=== PATIENT | female | born 1970 | race Two or more races ===

== ENCOUNTER 2017-05-01 15:34 | Inpatient (IN) | payer OTHER ==
[~2017-05-01] VITALS: Ht 152.4 cm; Wt 85.0 kg
[2017-05-01 17:35] VITALS: BP 142/96; PULSE 90; RESP 18
[2017-05-01 17:46] VITALS: PULSE 92
[2017-05-01] MEDS ORDERED: HYDROCODONE/APAP (10/325) TAB PO PRN (19:30)
[2017-05-01] MEDS: HYDROCODONE/APAP (10/325) TAB PO PRN (19:46)
[2017-05-01] MEDS ORDERED: LORA-444 PO (19:49)
[2017-05-01] MEDS ORDERED: CARI350T29 PO (19:50)
[2017-05-01 19:51] LABS: ALBUMIN 4.3 g/dl (3.3-4.9); ALBUMIN/GLOBULIN RATIO 1.19; BILIRUBIN,INDIRECT 0.1 mg/dl (0-1.1); BILIRUBIN,TOTAL 0.1 mg/dl (0.2-1.3); CALCIUM 9.4 mg/dl (8.4-10.2); CREATININE 0.58 mg/dl (0.44-1.00); POTASSIUM 3.7 mmol/L (3.5-5.1); TOTAL PROTEIN 7.9 g/dl (6.1-8.1)
[2017-05-01 20:00] VITALS: BP 165/90; RESP 20; Ht 152.4 cm; Wt 85.0 kg
[2017-05-01] MEDS ORDERED: LORAZEPAM 2 MG INJ IV ONE (20:00)
[2017-05-01 20:11] VITALS: PULSE 95
[2017-05-01] MEDS: morphine 2 MG INJ IV PRN ×2 (20:18→23:45)
--- NOTE | 2017-05-01 22:33 | HP ---
Date/Time of Note Date/Time of Note DATE: 05/01/17 TIME: 22:31 Assessment/Plan VTE Prophylaxis VTE Prophylaxis Intervention: SCD's Lines/Catheters IV [facility] Saline Lock Urinary Cath still in place: No Assessment/Plan Assessment/Plan 47-year-old female who presents with nonspecific left-sided weakness, left facial numbness, and heavy tongue causing difficulty swallowing managed as follows: 1. L sided weakness and numbness r/o acute CVA 2. DM type 2 3. HTN 4. Anxiety d/o which may be contributing to #1 5. Prev "Mini strokes" in the past PLAN: Admit tele / MRI Brain / 2D echo PT / ST eval / Neurology consult Screening labs for dyslipidemia, DM, Thyroid disease Empiric ASA / Statin therapy Further evaluation and treatment will be based on clinical course and findings PROPHYLAXIS: Lovenox / Pepcid Plan of care has been discussed with patient, questions answered and patient has verbalized understanding. Please review chart and notes for further information if needed. HPI/ROS Admit Date/Time Admit Date/Time May 01, 2017 at 17:36 Hx of Present Illness 47 yo F sent from [place] where she had presented withL arm numbness and slurred speech and a heavy tongue. States she has had mini strokes in the past, with residual LLE mild weakness. At this time reports being significantly weaker on L arm. Also has failed bedside swallow eval. Code stroke was called but TPA was not recommended, Patient also has anxiety issues. being admitted for stroke workup. Brain CT showed no prev strokes or acute abn. MRI ordered and pending. ROS 12 point review if systems was done and pertinent findings are as noted. ENT: dysphagia PMH/Family/Social Past Medical History * HTN * DM * [place] * Obesity * anxiety d/o Past Surgical History * appendicitis * tubal ligation * hysterectomy * shoulder replacement * left clavicle surgery. Family History Significant Family History: hypertension Social History Alcohol Use: none Smoking Status: Never smoker Drug Use: none Exam/Review of Systems Vital Signs Vitals VS - Last 72 Hours, by Label Date Time Temp Pulse Resp B/P Pulse Ox O2 Delivery O2 Flow Rate FiO2 05/01/17 20:00 99.6 98 20 165/90 97 05/01/17 17:46 92 05/01/17 17:35 99.9 90 18 142/96 94 Room Air Vital Signs Date Time Temp Pulse Resp B/P Pulse Ox O2 Delivery O2 Flow Rate FiO2 05/01/17 20:00 99.6 98 20 165/90 97 05/01/17 17:35 Room Air Exam Constitutional: alert, other (obese) Psych: anxiety Head: atraumatic, normocephalic Eyes: PERRL ENMT: mucosa pink and moist Neck: non-tender, supple Respiratory: clear to auscultation Cardiovascular: regular rate and rhythm, No murmurs/extra sounds Gastrointestinal: bowel sounds, non-tender, other (obese), soft Extremities: No edema Neurological: focal weakness (patient seems weaker on the LLE and LUE, she can barely raise LLE against gravity and has a significant drift in LUE and L facial numbness), lethargic, No confused, No nl strength Skin: No rash or lesions Labs Result Diagram: 05/01/171916 Medications Medications Current Medications Acetaminophen/ Hydrocodone Bitart ([place] (10/325)) 1 tab Q4H PRN PO PAIN Last administered on 05/01/17 19:46; Admin Dose 1 TAB; Start 05/01/17 at 19:30 Morphine Sulfate (morphine) 2 mg Q4H PRN IV PAIN Last administered on 20:18; Admin Dose 2 MG; Start 05/01/17 at 20:00 Procedures Procedures Labs reviewed and summarized in HPI. HAYLIE REBOLLEDO May 01, 2017 22:33
[2017-05-02] VITALS (13 sets, daily range): BP systolic 113–143; BP diastolic 58–107; PULSE 75–97; RESP 15–18
[2017-05-02] MEDS ORDERED: DIVA250T12 PO (01:56)
[2017-05-02] MEDS ORDERED: DIVA-16 PO (01:56)
[2017-05-02] MEDS ORDERED: DIVA500T15 PO (01:56)
[2017-05-02] MEDS ORDERED: GABA300C16 PO (01:59)
[2017-05-02] MEDS ORDERED: OXCA600T30 PO (02:03)
[2017-05-02] MEDS ORDERED: ASPI-664 PO (02:03)
[2017-05-02] MEDS ORDERED: HYDR-906 PO (02:05)
[2017-05-02] MEDS ORDERED: DEXTROSE 5%-0.45% NACL 1,000 ML IV SCH (02:30)
[2017-05-02] MEDS: morphine 2 MG INJ IV PRN ×4 (03:39→23:26)
[2017-05-02] MEDS: LORAZEPAM 1 MG TAB PO PRN ×2 (03:49→12:41)
[2017-05-02 08:48] LABS: BASOPHILS % 0.4 % (0.0-2.0); EOSINOPHILS % 0.5 % (0.0-7.0); HEMATOCRIT 37.4 % (37.0-47.0); HEMOGLOBIN 12.4 g/dl (12.0-16.0); LYMPHOCYTES # 1.3 10^3/ul (0.8-2.9); LYMPHOCYTES % 16.3 % (15.0-51.0); MEAN CORPUSCULAR HGB CONC 33.2 g/dl (32.0-37.0); MEAN CORPUSCULAR VOLUME 90.6 fl (82.0-101.0); MEAN PLATELET VOLUME 11.7 fl (7.4-10.4); MONOCYTE # 0.8 10^3/ul (0.3-0.9); MONOCYTES % 9.8 % (0.0-11.0); NEUTROPHILS % 72.7 % (39.0-77.0); PLATELET COUNT 302 10^3/UL (140-415); RED BLOOD COUNT 4.13 10^6/ul (4.20-5.40); WHITE BLOOD COUNT 7.7 10^3/ul (4.8-10.8)
[2017-05-02 09:15] LABS: ALBUMIN 4.3 g/dl (3.3-4.9); BILIRUBIN,INDIRECT 0.2 mg/dl (0-1.1); BILIRUBIN,TOTAL 0.2 mg/dl (0.2-1.3); CHOL/HDL RATIO 5.1 RATIO; CREATININE 0.72 mg/dl (0.44-1.00); MAGNESIUM 2.2 mg/dl (1.7-2.5); POTASSIUM 3.5 mmol/L (3.5-5.1); TOTAL PROTEIN 7.4 g/dl (6.1-8.1)
[2017-05-02] MEDS: HYDROCODONE/APAP (10/325) TAB PO PRN ×4 (09:17→20:38)
[2017-05-02] MEDS: SOD CHLORIDE 0.9% 1,000 ML IV SCH ×2 (10:20→22:50)
[2017-05-02 10:40] LABS: THYROID STIMULATING HORMONE 1.93 MIU/L (0.465-4.680)
[2017-05-02] MEDS: ASPIRIN 300 MG SUPP PR SCH (11:00)
--- NOTE | 2017-05-02 14:29 | PN ---
Date/Time of Note Date/Time of Note DATE: 05/02/17 TIME: 14:17 Assessment/Plan VTE Prophylaxis VTE Prophylaxis Intervention: LMWH Lines/Catheters IV Catheter Type (from Nrs): Peripheral IV Urinary Cath still in place: No Assessment/Plan Assessment/Plan 1. Left sided weakness and numbness and cold feeling, r/o acute CVA, awaiting for MRI, echo/carotid US 2. Dyslipidemia, on statin 3. Anxiety disorder 4. Obesity 5. Chronic back pain, norco prn 6. DVT prophylaxis: lovenox Subjective 24 Hr Interval Summary Free Text/Dictation still with left sided weakness and numbness Exam/Review of Systems Vital Signs Vitals Vital Signs Date Time Temp Pulse Resp B/P Pulse Ox O2 Delivery O2 Flow Rate FiO2 05/02/17 12:10 97.8 94 18 128/74 93 05/01/17 17:35 Room Air Intake and Output 05/01/17 05/01/17 05/02/17 15:00 23:00 07:00 Intake Total 225 ml Balance 225 ml Exam Constitutional: alert, oriented, well developed Head: atraumatic, normocephalic Eyes: EOMI, PERRL, nl conjunctiva, nl lids ENMT: nl external ears & nose, nl lips & teeth, nl nasal mucosa & septum Neck: supple Respiratory: clear to auscultation, normal air movement, No congested cough, No crackles/rales, No diminished breath sounds, No intercostal retraction, No labored breathing, No other, No respirations, No tactile fremitus, No wheezing Cardiovascular: nl pulses, regular rate and rhythm, No S3, No S4, No bruits, No diastolic murmur, No edema, No gallop, No irregular rhythm, No jugular venous distention (JVD), No murmurs/extra sounds, No other, No rub, No systolic murmur Gastrointestinal: nl liver, spleen, non-tender, soft, No ascites, No bowel sounds, No distended, No firm, No hepatomegaly, No mass , No other, No rebound or guarding, No splenomegaly, No surgical scars, No tender Musculoskeletal: nl extremities to inspection Extremities: normal pulses, No calf tenderness, No clubbing, No cyanosis, No edema, No other, No palpable cord, No pitting pedal edema, No tenderness Neurological: [employer]IST II-XII intact, nl mental status, nl speech, nl strength Results Result Diagram: 05/02/17 0820 05/02/17 0820 Results 24 hrs Laboratory Tests Test 05/01/17 19:17 05/02/17 08:20 Sodium Level 143 139 Potassium Level 3.7 3.5 Chloride Level 102 103 Carbon Dioxide Level 24 28 Anion Gap 21 H 12 # Blood Urea Nitrogen 13 18 Creatinine 0.58 0.72 Glucose Level 95 104 Calcium Level 9.4 9.0 Total Bilirubin 0.1 L 0.2 Direct Bilirubin 0.00 0.00 Indirect Bilirubin 0.1 0.2 Aspartate Amino Transf (AST/SGOT) 21 18 Alanine Aminotransferase (ALT/SGPT) 30 30 Alkaline Phosphatase 58 51 Total Protein 7.9 7.4 Albumin 4.3 4.3 Globulin 3.60 H Albumin/Globulin Ratio 1.19 White Blood Count 7.7 Red Blood Count 4.13 L Hemoglobin 12.4 Hematocrit 37.4 Mean Corpuscular Volume 90.6 Mean Corpuscular Hemoglobin 30.0 Mean Corpuscular Hemoglobin Concent 33.2 Red Cell Distribution Width 14.0 Platelet Count 302 Mean Platelet Volume 11.7 H Neutrophils % 72.7 Lymphocytes % 16.3 Monocytes % 9.8 Eosinophils % 0.5 Basophils % 0.4 Nucleated Red Blood Cells % 0.0 Neutrophils # (Manual) 6 Lymphocytes # 1.3 Monocytes # 0.8 Eosinophils # 0.0 Basophils # 0.0 Nucleated Red Blood Cells # 0.0 Hemoglobin A1c 5.6 Magnesium Level 2.2 Triglycerides Level 188 H Cholesterol Level 261 H LDL Cholesterol, Calculated 172 HDL Cholesterol 51 Cholesterol/HDL Ratio 5.1 Thyroid Stimulating Hormone (TSH) 1.930 Free Thyroxine 0.59 L Medications Medications Current Medications Acetaminophen/ Hydrocodone Bitart ([place] (10/325)) 1 tab Q4H PRN PO PAIN Last administered on 05/02/17 12:42; Admin Dose 1 TAB; Start 05/01/17 at 19:30 Morphine Sulfate (morphine) 2 mg Q4H PRN IV PAIN Last administered on 12:39; Admin Dose 2 MG; Start 05/01/17 at 20:00 Carisoprodol (Soma) 350 mg Q8H PRN PO MUSCLE SPASMS; Start 05/01/17 at 23:00 Lorazepam (Ativan) 2 mg BID PRN PO ANXIETY Last administered on 05/02/17 12:41 ; Admin Dose 2 MG; Start 05/01/17 at 23:00 Aspirin 300 mg 300 mg DAILY [place] ; Start 05/02/17 at 11:00 Sodium Chloride (NS) 1,000 ml @ 75 mls/hr [id number] IV Last administered on 05/02 10:20; Admin Dose 75 MLS/HR; Start 05/02/17 at 09:30 TOLU HUMMEL MD May 02, 2017 14:29
--- NOTE | 2017-05-02 15:10 | RADRPT ---
PROCEDURE: US Carotids. CLINICAL INDICATION: bruit , stroke TECHNIQUE: Multiple sonographic of the carotid bifurcation region and vertebral arteries were obta ined utilizing jay scale, duplex and color-flow imaging. The images were reviewed on a PACS worksta tion. COMPARISON: No prior studies are available for comparison. FINDINGS: Evaluation of the right carotid bifurcation region reveals no significant calcific atherosclerotic d isease. Evaluation of the left carotid bifurcation region reveals no significant calcific atherosclerotic di sease. There is antegrade flow within the vertebral arteries bilaterally. RIGHT CAROTID MEASUREMENTS: Common Carotid Yviuvt83.3 (cm/sec) Internal Carotid Artery - hcisfwwb25.5 (cm/sec) Internal Carotid Artery - mid79 (cm/sec) Internal Carotid Artery - nyvxqx06.1 (cm/sec) Internal Carotid/Common Carotid0.79 LEFT CAROTID MEASUREMENTS: Common Carotid Wnuonq34 (cm/sec) Internal Carotid Artery - fvlndbiz58.1 (cm/sec) Internal Carotid Artery - mid63.9 (cm/sec) Internal Carotid Artery - brpvpu12.2 (cm/sec) Internal Carotid/Common Carotid0.94 RPTAT: AA IMPRESSION: No evidence for hemodynamically significant stenosis in the bilateral internal carotid arteries - va lidated velocity measurements with angiographic measurements, velocity criteria are extrapolated fro m diameter data as defined by the Society of Radiologists in Ultrasound Consensus Conference Radiolo gy 2003; 229;340-346. This study does indirectly reference the measurement of the distal ICA diamet er as the denominator for stenosis measurement. Normal antegrade flow in the vertebral arteries bilaterally. .Trino Barajas MD, Date Time Electronically viewed and signed by .Trino Barajas MD, MD on 05/02/2017 15:10 .S/
--- NOTE | 2017-05-02 17:39 | CONS ---
Date/Time of Note Date/Time of Note DATE: 05/02/17 TIME: 17:30 Assessment/Plan Assessment/Plan Chief Complaint/Hosp Course 47 year old female with anxiety, chronic pain syndrome, fibromyalgia admitted with left sided numbness. MRI pending to eval for stroke, suspect conversion disorder? Recommend: MRI Brain w/o contrast duplex is negative HBA1C optimize diabetes check FLP maintain normotension outpatient neurosurgery fu for cervical stenosis patient has scheduled visits PT/OT/Speech Problems: Consultation Date/Type/Reason Admit Date/Time May 01, 2017 at 17:36 Date of Consultation: May 02, 2017 Type of Consultation: Neurology Reason for Consultation evaluation for left sided weakness Referring Provider: HAYLIE REBOLLEDO of Present Illness 47 year old female with history of anxiety, chronic pain syndrome, fibromyalgia , cervical disc disease, reported TIA? admitted with numbness involving left arm and leg. She reports sx began this past Sunday have been fluctuating since then she also had difficulty with speech and heaviness in her tongue. Stroke Code was called no tPA recommended. CTH showed no prior CVA. left sided numbness and pain throughout her entire body ENT: dysphagia Social History Smoking Status: Never smoker Exam/Review of Systems Vital Signs Vitals Vital Signs Date Time Temp Pulse Resp B/P Pulse Ox O2 Delivery O2 Flow Rate FiO2 05/02/17 16:10 97.8 85 18 137/78 93 05/01/17 17:35 Room Air Intake and Output 05/01/17 05/01/17 05/02/17 15:00 23:00 07:00 Intake Total 225 ml Balance 225 ml Exam awake and alert anxious appearing oriented x3 no aphasia follows all commands CN: II-XII intact Motor: poor effort provided when muscle groups isolated 5/5 Lux's sign present Reflexes 2+ throughout toes down Sensory reported decreased left arm and leg Coord no ataxia Results Result Diagram: 05/02/17 0820 05/02/17 0820 Results 24 hrs Laboratory Tests Test 05/01/17 19:17 05/02/17 08:20 Sodium Level 143 139 Potassium Level 3.7 3.5 Chloride Level 102 103 Carbon Dioxide Level 24 28 Anion Gap 21 H 12 # Blood Urea Nitrogen 13 18 Creatinine 0.58 0.72 Glucose Level 95 104 Calcium Level 9.4 9.0 Total Bilirubin 0.1 L 0.2 Direct Bilirubin 0.00 0.00 Indirect Bilirubin 0.1 0.2 Aspartate Amino Transf (AST/SGOT) 21 18 Alanine Aminotransferase (ALT/SGPT) 30 30 Alkaline Phosphatase 58 51 Total Protein 7.9 7.4 Albumin 4.3 4.3 Globulin 3.60 H Albumin/Globulin Ratio 1.19 White Blood Count 7.7 Red Blood Count 4.13 L Hemoglobin 12.4 Hematocrit 37.4 Mean Corpuscular Volume 90.6 Mean Corpuscular Hemoglobin 30.0 Mean Corpuscular Hemoglobin Concent 33.2 Red Cell Distribution Width 14.0 Platelet Count 302 Mean Platelet Volume 11.7 H Neutrophils % 72.7 Lymphocytes % 16.3 Monocytes % 9.8 Eosinophils % 0.5 Basophils % 0.4 Nucleated Red Blood Cells % 0.0 Neutrophils # (Manual) 6 Lymphocytes # 1.3 Monocytes # 0.8 Eosinophils # 0.0 Basophils # 0.0 Nucleated Red Blood Cells # 0.0 Hemoglobin A1c 5.6 Magnesium Level 2.2 Triglycerides Level 188 H Cholesterol Level 261 H LDL Cholesterol, Calculated 172 HDL Cholesterol 51 Cholesterol/HDL Ratio 5.1 Thyroid Stimulating Hormone (TSH) 1.930 Free Thyroxine 0.59 L Medications Medications Current Medications Acetaminophen/ Hydrocodone Bitart ([place] (10/325)) 1 tab Q4H PRN PO PAIN Last administered on 05/02/17 12:42; Admin Dose 1 TAB; Start 05/01/17 at 19:30 Morphine Sulfate (morphine) 2 mg Q4H PRN IV PAIN Last administered on 12:39; Admin Dose 2 MG; Start 05/01/17 at 20:00 Carisoprodol (Soma) 350 mg Q8H PRN PO MUSCLE SPASMS; Start 05/01/17 at 23:00 Lorazepam (Ativan) 2 mg BID PRN PO ANXIETY Last administered on 05/02/17 12:41 ; Admin Dose 2 MG; Start 05/01/17 at 23:00 Aspirin 300 mg [address] ; Start 05/02/17 at 11:00 Sodium Chloride (NS) 1,000 ml @ 75 mls/hr [id number] IV Last administered on 05/02 10:20; Admin Dose 75 MLS/HR; Start 05/02/17 at 09:30 Enoxaparin Sodium (Lovenox) 40 mg DAILY [place] ; Start 05/02/17 at 14:30 Atorvastatin Calcium (Lipitor) 20 mg HS PO ; Start 05/02/17 at 21:00 MOISES SERRANO MD May 02, 2017 17:39
[2017-05-02] MEDS: ENOXAPARIN 40 MG/0.4 ML SYG SC SCH (17:45)
[2017-05-02] MEDS: CARISOPRODOL 350 MG TAB PO PRN (20:38)
[2017-05-02] MEDS ORDERED: ATORVASTATIN 20 MG TAB PO SCH (21:00)
[2017-05-02] MEDS ORDERED: LORAZEPAM 2 MG INJ IV ONE (21:54)
--- NOTE | 2017-05-02 23:08 | RADRPT ---
PROCEDURE: MR Brain without contrast. CLINICAL INDICATION: CVA TECHNIQUE: An MRI of the brain was performed on a 1.5 bear scanner utilizing the following sequen alli: Sagittal T1 weighted, axial T2 weighted, axial FLAIR, coronal GRE, and axial diffusion weighted with ADC mapping. COMPARISON: None FINDINGS: No evidence of restricted diffusion to suggest acute or early subacute ischemic infarction. There i s no evidence of intracranial hemorrhage, mass effect, or midline shift. No extra-axial fluid collec tions are seen. No hypointense signal abnormalities are seen on the GRE images to suggest the presence of blood degr adation products. The brain parenchyma is normal in signal intensity and morphology with preservation of jay white di fferentiation . Age appropriate size of the ventricles and subarachnoid spaces. Partially empty devyn la. The posterior fossa contents, brainstem, seventh - eighth cranial nerve complexes, pituitary axis, o rbits, paranasal sinuses, and mastoid air cells are unremarkable. Normal flow voids are visible in the proximal intracranial arteries and dural sinuses, indicating pa tency. IMPRESSION: 1. No evidence of acute intracranial pathology. RPTAT:AAJJ Physician Elijah Date Time Electronically viewed and signed by Physician Elijah on 05/02/2017 23:07 NORI/
[2017-05-03] VITALS (8 sets, daily range): BP systolic 100–144; BP diastolic 56–93; PULSE 72–83; RESP 18
[2017-05-03] MEDS: HYDROCODONE/APAP (10/325) TAB PO PRN ×3 (02:05→15:35)
[2017-05-03] MEDS: morphine 2 MG INJ IV PRN ×4 (03:33→17:04)
[2017-05-03] MEDS: LORAZEPAM 1 MG TAB PO PRN ×2 (06:05→16:16)
[2017-05-03 08:14] LABS: BASOPHILS % 0.4 % (0.0-2.0); EOSINOPHILS # 0.1 10^3/ul (0.0-0.5); EOSINOPHILS % 1.9 % (0.0-7.0); HEMATOCRIT 36.1 % (37.0-47.0); HEMOGLOBIN 11.6 g/dl (12.0-16.0); LYMPHOCYTES # 1.8 10^3/ul (0.8-2.9); MEAN CORPUSCULAR HEMOGLOBIN 29.4 pg (29.0-33.0); MEAN CORPUSCULAR HGB CONC 32.1 g/dl (32.0-37.0); MEAN CORPUSCULAR VOLUME 91.6 fl (82.0-101.0); MEAN PLATELET VOLUME 11.9 fl (7.4-10.4); MONOCYTE # 0.7 10^3/ul (0.3-0.9); MONOCYTES % 10.3 % (0.0-11.0); PLATELET COUNT 270 10^3/UL (140-415); RED BLOOD COUNT 3.94 10^6/ul (4.20-5.40); RED CELL DISTRIBUTION WIDTH 13.9 % (11.5-14.5)
[2017-05-03] MEDS: ASPIRIN 300 MG SUPP PR SCH (08:36)
[2017-05-03] MEDS: ENOXAPARIN 40 MG/0.4 ML SYG SC SCH (08:37)
[2017-05-03 08:47] LABS: CALCIUM 8.6 mg/dl (8.4-10.2); CREATININE 0.68 mg/dl (0.44-1.00); POTASSIUM 3.4 mmol/L (3.5-5.1)
[2017-05-03] MEDS: SOD CHLORIDE 0.9% 1,000 ML IV SCH (10:29)
--- NOTE | 2017-05-03 11:53 | RADRPT ---
Echocardiogram Report Patient Name: YOAN HERNANDEZ Gender: Female Date: 1970 Study Date: 02-May-2017 Visitor Services Information Assistant: BHAVESH LORE Location: [id number] Ref. Physician: HAYLIE REBOLLEDO Quality: Good Procedures: Transthoracic echocardiogram with complete 2D, M-Mode, and doppler examination. Indications: Cerebrovascular Accident. 2D/M Mode Doppler Measurement Value Normal Ranges Measurement Value Normal Ranges LVIDd 2D 3.8 3.5 - 5.6 cm LYRIC Vmax 2.7 cm2 LVIDs 2D 1.9 2.1 - 4.1 cm LYIRC VTI 2.7 cm2 LVPWd 2D 1.1 0.6 - 1.1 cm AV Peak [place] 1.4 m/sec IVSd 2D 1.1 0.6 - 1.1 cm AV Peak PG 7.7 mmHg AoR Diam 2D 2.7 2.0 - 3.7 cm LVOT Peak [place] 1.1 m/sec EDV 2D 62.2 cm3 LVOT Peak PG 4.7 mmHg ESV 2D 7.3 cm3 MV E Peak [place] 0.7 m/sec LA Dimen 2D 3.6 2.3 - 4.0 cm MV A Peak [place] 0.9 m/sec LVOT Diam 2.1 cm MV E/A 0.8 MV Decel Time 194 msec MV Decel [place] 4 MV E/A 0.8 TR Peak [place] 2.0 m/sec TR Peak PG 16.3 mmHg RVSP 17.5 mmHg Findings Left Ventricle: Normal left ventricular systolic function. Normal left ventricular cavity size. Left ventricular wall thickness upper limits of normal. Ejection fraction is visually estimated at 65 %. Tissue Doppler/Mitral Doppler indices are within normal limits. Right Ventricle: Normal right ventricular size. Normal right ventricular systolic function. Left Atrium: The left atrium is normal in size. Right Atrium: The right atrium is normal in size. Mitral Valve: Trace mitral regurgitation. Aortic Valve: Normal appearance of the aortic valve. No significant aortic stenosis or insufficiency. Tricuspid Valve: Unable to obtain RVSP due to minimal presence of tricuspid regurgitation. Pulmonic Valve: Normal pulmonic valve appearance. Pericardium: Pleural effusion seen. Aorta: Normal aortic root. IVC: Normal size and normal respiratory collapse consistent with normal right atrial pressure. Conclusions Normal left ventricular systolic function. Normal left ventricular cavity size. Left ventricular wall thickness upper limits of normal. Ejection fraction is visually estimated at 65 %. Tissue Doppler/Mitral Doppler indices are within normal limits. No significant valvular stenosis or regurgitation seen. Unable to obtain RVSP due to minimal presence of tricuspid regurgitation. Electronically Signed By: Sanya Gaines 03-May-2017 11:53:20 -0700 Patient Name: YOAN HERNANDEZ Study Date: 02-May-2017 [id number]
--- NOTE | 2017-05-03 15:29 | DS ---
Date/Time of Note Date/Time of Note DATE: 05/03/17 TIME: 15:23 Discharge Summary Admission/Discharge Info Admit Date/Time May 01, 2017 at 17:36 Discharge Date/Time Discharge Diagnosis 1. Left sided chronic weakness with acute feeling of numbness and cold, MRI negative, follow up with PCP 2. Dyslipidemia, on statin 3. Anxiety disorder, follow up with PCP 4. Obesity 5. Chronic back pain, stable, follow up with PCP Patient Condition: Stable Procedures [place] [address] Radiology Main Line: [phone] DIAGNOSTIC IMAGING REPORT Patient: YOAN HERNANDEZ : 1970 Age: 47 Sex: F MR #: [id number] DOS: 05/02/17 0000 Ordering MD: ABIMAEL GONZALEZ MD [place] [facility] [place]Bed[place] [facility] PROCEDURE: MR Brain without contrast. CLINICAL INDICATION: CVA TECHNIQUE: An MRI of the brain was performed on a 1.5 bear scanner utilizing the following sequences: Sagittal T1 weighted, axial T2 weighted, axial FLAIR, coronal GRE, and axial diffusion weighted with ADC mapping. COMPARISON: None FINDINGS: No evidence of restricted diffusion to suggest acute or early subacute ischemic infarction. There is no evidence of intracranial hemorrhage, mass effect, or midline shift. No extra-axial fluid collections are seen. No hypointense signal abnormalities are seen on the GRE images to suggest the presence of blood degradation products. The brain parenchyma is normal in signal intensity and morphology with preservation of jay white differentiation . Age appropriate size of the ventricles and subarachnoid spaces. Partially empty sella. The posterior fossa contents, brainstem, seventh - eighth cranial nerve complexes, pituitary axis, orbits, paranasal sinuses, and mastoid air cells are unremarkable. Normal flow voids are visible in the proximal intracranial arteries and dural sinuses, indicating patency. IMPRESSION: 1. No evidence of acute intracranial pathology. RPTAT:AAJJ Giuseppe Velez Physician Date Time Electronically viewed and signed by Physician Elijah on 05/02/2017 23:07 NORI/ CC: ABIMAEL GONZALEZ MD [facility] ~CARDIOLOGY REPORT~ Patient: YOAN HERNANDEZ : 1970 Age: 47 Sex: F [id number] Room/Bed: 5567-A Location: [address] MD: HAYLIE REBOLLEDO Signed Echocardiogram Report Patient Name: YOAN HERNANDEZ Gender: Female Date: 1970 Study Date: 02-May-2017 Edger Liner: JAMESON OSPINA Location: 5567 Ref. Physician: HAYLIE REBOLLEDO Quality: Good Procedures: Transthoracic echocardiogram with complete 2D, M-Mode, and doppler examination. Indications: Cerebrovascular Accident. 2D/M Mode Doppler Measurement Value Normal Ranges Measurement Value Normal Ranges LVIDd 2D 3.8 3.5 - 5.6 cm LYRIC Vmax 2.7 cm2 LVIDs 2D 1.9 2.1 - 4.1 cm LYRIC VTI 2.7 cm2 LVPWd 2D 1.1 0.6 - 1.1 cm AV Peak [place] 1.4 m/sec IVSd 2D 1.1 0.6 - 1.1 cm AV Peak PG 7.7 mmHg AoR Diam 2D 2.7 2.0 - 3.7 cm LVOT Peak [place] 1.1 m/sec EDV 2D 62.2 cm3 LVOT Peak PG 4.7 mmHg ESV 2D 7.3 cm3 MV E Peak [place] 0.7 m/sec LA Dimen 2D 3.6 2.3 - 4.0 cm MV A Peak [place] 0.9 m/sec LVOT Diam 2.1 cm MV E/A 0.8 MV Decel Time 194 msec MV Decel Moore 4 MV E/A 0.8 TR Peak [place] 2.0 m/sec TR Peak PG 16.3 mmHg RVSP 17.5 mmHg Findings Left Ventricle: Normal left ventricular systolic function. Normal left ventricular cavity size. Left ventricular wall thickness upper limits of normal. Ejection fraction is visually estimated at 65 %. Tissue Doppler/Mitral Doppler indices are within normal limits. Right Ventricle: Normal right ventricular size. Normal right ventricular systolic function. Left Atrium: The left atrium is normal in size. Right Atrium: The right atrium is normal in size. Mitral Valve: Trace mitral regurgitation. Aortic Valve: Normal appearance of the aortic valve. No significant aortic stenosis or insufficiency. Tricuspid Valve: Unable to obtain RVSP due to minimal presence of tricuspid regurgitation. Pulmonic Valve: Normal pulmonic valve appearance. Pericardium: Pleural effusion seen. Aorta: Normal aortic root. IVC: Normal size and normal respiratory collapse consistent with normal right atrial pressure. Conclusions Normal left ventricular systolic function. Normal left ventricular cavity size. Left ventricular wall thickness upper limits of normal. Ejection fraction is visually estimated at 65 %. Tissue Doppler/Mitral Doppler indices are within normal limits. No significant valvular stenosis or regurgitation seen. Unable to obtain RVSP due to minimal presence of tricuspid regurgitation. Electronically Signed By: Sanya Gaines 03-May-2017 11:53:20 -6600 Patient Name: YOAN HERNANDEZ Study Date: 02-May-2017 [id number] Hospital Course 47 years old obese lady with history of multiple mini stroke with chronic left side weakness presented with left side numbness and cold feeling started from face down to left side all the way to lower extremity. Physical exam unremarkle. Carotid ultrasound, echocardiography, and MRI brain all unremarkable. Patient has chronic low back pain that she is seeing a neurosurgeon. She will follow up with PCP for pain management. Home Meds Reported Medications Hydrocodone/Acetaminophen (Wellman 5-325 Tablet) 1 Each Tablet, 1 EACH PO Q4 Y for PAIN, TAB 05/02/17 Oxcarbazepine* (Oxcarbazepine*) 600 Mg Tablet, 600 MG PO QAM, TAB 05/02/17 Aspirin* (Aspirin* EC) 81 Mg Tablet.dr, 81 MG PO DAILY, TAB 05/02/17 Gabapentin* (Gabapentin*) 300 Mg Capsule, 300 MG PO TID, #90 CAP 05/02/17 Divalproex Sodium* (Divalproex ER*) 500 Mg Tab.er.24h, 500 MG PO, #30 TAB.SA 05/02/17 Carisoprodol* (Carisoprodol*) 350 Mg Tablet, 350 MG PO Q8 Y for MUSCLE SPASMS, TAB 05/01/17 Lorazepam* (Ativan*) 2 Mg Tablet, 2 MG PO BID Y for ANXIETY, #30 TAB 05/01/17 Follow-up Plan PCP in one week Primary Care Provider Care Physician No Primary Pending Labs Laboratory Tests Test 05/03/17 07:15 White Blood Count 7.010^3/ul (4.8-10.8) Red Blood Count 3.9410^6/ul (4.20-5.40) Hemoglobin 11.6g/dl (12.0-16.0) Hematocrit 36.1% (37.0-47.0) Mean Corpuscular Volume 91.6fl (82.0-101.0) Mean Corpuscular Hemoglobin 29.4pg (29.0-33.0) Mean Corpuscular Hemoglobin Concent 32.1g/dl (32.0-37.0) Red Cell Distribution Width 13.9% (11.5-14.5) Platelet Count 88252^3/UL (140-415) Mean Platelet Volume 11.9fl (7.4-10.4) Neutrophils % 62.0% (39.0-77.0) Lymphocytes % 25.0% (15.0-51.0) Monocytes % 10.3% (0.0-11.0) Eosinophils % 1.9% (0.0-7.0) Basophils % 0.4% (0.0-2.0) Nucleated Red Blood Cells % 0.0/100WBC (0.0-0.0) Neutrophils # (Manual) 410^3/ul (1.7-7.5) Lymphocytes # 1.810^3/ul (0.8-2.9) Monocytes # 0.710^3/ul (0.3-0.9) Eosinophils # 0.110^3/ul (0.0-0.5) Basophils # 0.010^3/ul (0.0-0.1) Nucleated Red Blood Cells # 0.010^3/ul (0.0-0.0) Sodium Level 138mmol/L (135-144) Potassium Level 3.4mmol/L (3.5-5.1) Chloride Level 101mmol/L (97-110) Carbon Dioxide Level 29mmol/L (21-31) Anion Gap 11 (8-16) Blood Urea Nitrogen 19mg/dl (7-20) Creatinine 0.68mg/dl (0.44-1.00) Glucose Level 96mg/dl (70-220) Calcium Level 8.6mg/dl (8.4-10.2) TOLU HUMMEL MD May 03, 2017 15:29
[2017-05-03] MEDS: CARISOPRODOL 350 MG TAB PO PRN (15:35)
== END 2017-05-03 17:27 | disposition home or self-care (01) | DRG 556 ==
LOC: MS4 17:36
PROVIDERS: ADMIT Internal Medicine; ATTEND Internal Medicine
DX: M62.81 Muscle weakness (generalized) (principal); R13.10 Dysphagia, unspecified; E78.5 Hyperlipidemia, unspecified; R20.0 Anesthesia of skin; F41.9 Anxiety disorder, unspecified; E66.9 Obesity, unspecified; Z68.36 Body mass index [BMI] 36.0-36.9, adult; M54.9 Dorsalgia, unspecified; G89.4 Chronic pain syndrome; E11.9 Type 2 diabetes mellitus without complications; R47.81 Slurred speech
CPT/HCPCS: 70551; 80048; 80053; 80061; 80076; 83036; 83735; 84439; 84443; 85025; 92610; 93306; 93880; 97110; 97116; 97161; 97530; J1650; J2060; J2270; J7030; J7042

== ENCOUNTER 2017-11-01 13:11 | Emergency (ER) | END 2017-11-01 17:55 | disposition home or self-care (01) ==